=== PATIENT | female | born 1955 | race Caucasian/White ===

== ENCOUNTER 2016-08-15 12:12 | Observation (INO) | payer OTHER ==
[2016-08-15] MEDS ORDERED: ASPIRIN 81 MG CHEWABLE TAB PO ONE ×2 (12:24→12:45)
--- NOTE | 2016-08-15 12:25 | CPEKG ---
Heart Rate: 73 RR Interval: 822 P-R Interval: 164 QRSD Interval: 88 QT Interval: 388 QTC Interval: 428 P [place]: 37 QRS [place]: 0 T Wave [place]: 59 EKG Severity - BORDERLINE ECG - EKG Impression: SINUS RHYTHM EKG Impression: BORDERLINE T ABNORMALITIES, ANT-LAT LEADS Electronically Signed By: Thanh Escobedo 15-Aug-2016 14:30:41
[2016-08-15] MEDS ORDERED: ASPIRIN 81 MG CHEWABLE TAB ONE (12:31)
[2016-08-15 12:53] LABS: % IMMATURE GRANULYOCYTES 0.7 % (0.0-1.1); ABSOLUTE IMMATURE GRANULOCYTES 0.06 10^3/uL (0.00-0.10); ADD DIFF? NO; ADD MORPH? NO; ADD SCAN? NO; ATYPICAL LYMPHOCYTE FLAG 0 (0-99); FRAGMENT RBC FLAG 0 (0-99); HEMATOCRIT 45.2 % (38.0-47.0); LEFT SHIFT FLG 0 (0-99); LIPEMIA HEMOLYSIS FLAG 80 (0-99); MEAN CELL HEMOGLOBIN CONCENTR. 33.2 g/dL (32.4-36.7); MEAN CELL VOLUME 87.4 fL (81.5-99.8); MEAN PLATELET VOLUME 8.9 fL (8.7-11.7); PLATELET CLUMPS FLAG 10 (0-99); PLATELET COUNT 252 10^3/uL (150-400); RED BLOOD CELL COUNT 5.17 10^6/uL (4.18-5.33); RED CELL DISTRIBUTION WIDTH 13.4 % (11.5-15.2)
[2016-08-15 13:10] LABS: ANION GAP 14 mEq/L (8-16); CALCIUM 9.5 mg/dL (8.5-10.4); CARBON DIOXIDE 24 mEq/l (22-31); CHLORIDE 105 mEq/L (97-110); CREATININE 0.7 mg/dL (0.6-1.0); GLOMERULAR FILTRATION RATE > 60; GLUCOSE 106 mg/dL (70-100); INR 0.94 (0.83-1.16); POTASSIUM 4.2 mEq/L (3.5-5.2); PROTIME(PATIENT) 12.3 SEC (12.0-15.0); SODIUM 143 mEq/L (134-144)
[2016-08-15] MEDS ORDERED: FAMOTIDINE 20 MG in NS 100 ML IV ONE (13:11)
--- NOTE | 2016-08-15 13:11 | UCPHY ---
H & P Time Seen by Provider: 08/15/16 12:24 Patient Type: Established HPI/ROS: HPI Abdominal discomfort, chest discomfort. 61-year-old female by private vehicle with her . This patient reports that she was [facility] this last Friday. She was exercising when she started to feel ill. She describes this as feeling weak in achy and then developing nausea and abdominal discomfort. She reports that Friday night her nausea worsened and she started vomiting. She reports several episodes of nonbilious nonbloody vomiting. Her abdominal discomfort has since gone away but she states that she feels pain in her sternum and feels mildly short of breath. She reports that this has continued. She spoke with her primary care physician today and was told to come to the urgent care for evaluation. No history of trauma. ROS: Constitutional: No fever, no chills. No weakness. Eyes: No discharge. No changes in vision. ENT: No sore throat. No nasal congestion or rhinorrhea. Respiratory: No cough. No shortness of breath. Cardiac: As above, no palpitations. Gastrointestinal: As above, no diarrhea. Genitourinary: No hematuria. No dysuria or increased frequency with urination. Musculoskeletal: No back pain. No neck pain. No myalgias or arthralgias. Skin: No rashes. Neurological: No headache. No focal weakness or altered sensation. Past medical history: Depression, GERD, reactive airway disease. Social history: Smoker. She is trying to quit. Here with her . Physical Exam: General Appearance: Alert, no distress. Obese habitus. This patient is responding to questions appropriately and in full sentences. This patient appears well-hydrated and well-nourished. Eyes: Pupils equal and round no pallor or injection. No lid edema, erythema or injection. Respiratory: There are no retractions, lungs are clear to auscultation with good air movement bilaterally. No tachypnea. Cardiovascular: Regular rate and rhythm. No murmur. Reproducible pain on palpation of the mid to upper sternum. No bony step-off or deformity noted. No soft tissue swelling, ecchymosis, no erythema, no warmth to this area. Gastrointestinal: Abdomen is soft and nontender, no masses, bowel sounds normal. No focal tenderness at McBurney's point. No Wetzel sign. Neurological: Motor sensory function is grossly intact. Cranial nerves are normal. Gait is normal. Skin: Warm and dry, no rashes. Musculoskeletal: Neck is supple and nontender. Extremities are symmetrical. All joints range without pain or impingement. Psychiatric: No agitation. No depression. Database: EKG: EKG time is 12:24 p.m. EKG shows a narrow complex normal sinus rhythm with a ventricular rate of 73. Borderline T-wave abnormalities in the anterior lateral leads. The AL, QRS, QT intervals are within normal limits. There are no ST-T wave changes indicative of ischemic or injury pattern. No evidence of right heart strain. Interpreted by me. Imaging: Chest x-ray AP portable; the cardiac mediastinal silhouette is unremarkable. No evidence of infiltrate or pneumothorax. No acute cardiopulmonary disease process noted. Interpreted by me. Procedures: Emergency department course: IV placed. She was placed on a shelter monitor. Vital signs reviewed. She was given 324 mg of chewed aspirin. EKG and chest x-ray obtained. Appropriate blood work sent. She was given IV Pepcid as well. 1:30 p.m., patient re-evaluated. Awaiting results of blood work. Feels better. No pain at rest. 1:40 p.m., D-dimer elevated. Discussed need for CT angio of chest. She consents. 2:35 p.m., the patient is just now going for her CT angiogram of her chest. 3:00 p.m., patient has a severe allergy to contrast dye and shellfish. She did not think premedication was possible. Spoke to radiologist Dr. Aguirre. Will send patient to [facility] emergency department for nuclear medicine scan. Spoke to Dr. Familia Valencia, Emergency Department attending physician. He is expecting this patient and will take over her care when she arrives in the emergency department. 3:25 p.m., spoke with hospitalist, Dr. Pollard. Dr. Pollard accepts this patient for admission to the [facility] observation status. Dr. Valencia will inform Dr. Pollard of results of V/Q scan. Patient transferred by private vehicle to [facility] emergency department in stable condition with her . Differential Diagnosis: The differential diagnosis on this patient includes but is not limited to food borne illness, viral gastritis, esophageal spasm, GERD, acute coronary syndrome. Pulmonary embolism, aortic dissection unlikely. This represents a partial list of diagnoses considered. These considerations are based on history , physical exam, past history, reassessment and diagnostic testing. Smoking Status: Current every day smoker Constitutional: Initial Vital Signs Temperature (C) 36.9 C 08/15/16 12:15 Heart Rate 75 08/15/16 12:15 Respiratory Rate 16 08/15/16 12:15 Blood Pressure 140/83 H 08/15/16 12:15 O2 Sat (%) 92 08/15/16 12:15 O2 Delivery Mode Nasal Cannula O2 (L/minute) 2 Allergies/Adverse Reactions: cephalexin monohydrate [From Keflex] Allergy (Severe, Verified 12/16/15 20:05) swelling, difficulty breathing acetaminophen [From Percocet] Allergy (Intermediate, Verified 08/15/16 16:00) Vomiting oxycodone HCl [From Percocet] Allergy (Intermediate, Verified 08/15/16 16:00) Vomiting tetracycline [Tetracycline] Allergy (Intermediate, Verified 12/16/15 20:05) boils vancomycin Allergy (Intermediate, Verified 12/16/15 20:06) Red Man Syndrome erythromycin base [Erythromycin Base] Allergy (Mild, Verified 08/15/16 16:00) Vomiting lidocaine [Lidocaine] Allergy (Mild, Verified 12/16/15 20:05) swelling, redness lidocaine HCl [From Xylocaine] Allergy (Mild, Verified 12/16/15 20:05) swelling,redness iodine [Iodine] Allergy (Unknown, Verified 12/16/15 20:05) told not to take Penicillins Allergy (Unknown, Verified 12/16/15 20:05) reacted as Sulfa (Sulfonamide Antibiotics) Allergy (Unknown, Verified 12/16/15 20:06) Unknown nestacaine Allergy (Mild, Uncoded 06/29/09 18:32) swelling,redness thimerisol Allergy (Mild, Uncoded 06/29/09 18:37) redness,heat,swelling at injection site mercury Allergy (Unknown, Uncoded 06/29/09 18:38) told not to take Home Medications: Medication Instructions Recorded Cetirizine [ZyrTEC 10 mg (*)] 10 mg PO DAILY 02/16/11 Venlafaxine Xr [Effexor Xr 75MG 150 mg PO DAILY 02/16/11 (*)] Albuterol [Proventil Inhaler HFA 1 - 2 puffs IH DAILY PRN 12/16/15 (*)] Levothyroxine [Synthroid 75 mcg 75 mcg PO DAILY06 12/16/15 (*)] Aspirin [Aspirin 81mg (*)] 81 mg PO DAILY 08/15/16 Cholecalciferol Vit D3 [Vitamin D3 4,000 units PO DAILY 08/15/16 2000 units tab (OTC)] Fluticasone Hfa 220 Mcg [Flovent 1 puffs PO BID PRN 08/15/16 220 MCG Hfa MDI (*)] Glucosamine/Chondroitin 1 each PO DAILY 08/15/16 [Glucosamine/Chondroitin (*)] Herbals/Supplements -Info Only 1 ea PO DAILY 08/15/16 Multivitamins [Multivitamin (*)] 1 each PO DAILY 08/15/16 Vitamin B Complex [B Complex] 1 each PO DAILY 08/15/16 Medical Decision Making - Data Points Laboratory Results: Laboratory Results 08/15/16 12:42 08/15/16 12:42 08/15/16 12:42 Total Bilirubin 0.6 mg/dL mg/dL (0.1-1.4) Conjugated Bilirubin 0.3 mg/dL mg/dL (0.0-0.5) Unconjugated Bilirubin 0.3 mg/dL mg/dL (0.0-1.1) AST 21 IU/L IU/L (14-46) ALT 32 IU/L IU/L (9-52) Alkaline Phosphatase 111 IU/L IU/L (38-126) Total Protein 6.5 g/dL g/dL (6.3-8.2) Albumin 3.6 g/dL g/dL (3.5-5.0) TSH 0.084 uIU/mL L uIU/mL (0.465-4.680) Medications Given: Discontinued Medications Aspirin (Aspirin) 324 mg PO EDNOW ONE Stop: 08/15/16 12:25 Last Admin: 08/15/16 12:49 Dose: Not Given Aspirin (Aspirin) 243 mg PO EDNOW ONE Stop: 08/15/16 12:46 Last Admin: 08/15/16 12:40 Dose: 243 mg Famotidine 20 mg/ Sodium (Chloride) 102 mls @ 408 mls/hr IV EDNOW ONE Stop: 08/15/16 13:25 Last Admin: 08/15/16 13:34 Dose: Not Given Famotidine/Sodium Chloride (Pepcid 20 Mg (Premix)) 50 mls @ 200 mls/hr IV ONCE ONE Stop: 08/15/16 13:47 Last Admin: 08/15/16 13:35 Dose: 50 mls Departure - Departure Disposition: [facility] Inpatient Acute Clinical Impression: Chest discomfort Condition: Good - PQRS PQRS Measurement: 134: Depression screening and followup, PRIME MD-PHQ2 (12 years and older) Over the last 2 weeks, how often have you been bothered by any of the following problems? 1. Feeling down, depressed, or hopeless? 2. Little interest or pleasure in doing things? Answered no to both questions. 130: Documentation of medications. Reviewed all patient medications, doses, route and frequency. 226: Do you smoke? No. 47: 65 and older: Advanced care planning. Patient designates surrogate decision maker as spouse. 51: 18 years old and older with diagnosis of COPD, spirometry performance. NA 52: 18 years old and older with COPD and symptoms of COPD or FEV1<60% predicted prescribed a B Agonist. NA
[2016-08-15 13:23] LABS: TROPONIN I < 0.012 ng/mL (0-0.034)
[2016-08-15] MEDS ORDERED: FAMOTIDINE 20 MG/NACL/50 ML BAG IV ONE (13:26)
[2016-08-15] MEDS ORDERED: FAMOTIDINE 20 MG/NACL 50 ML IV ONE (13:33)
[2016-08-15] MEDS ORDERED: IOPAMIDOL (ISOVUE-370) 150 ML BTL IV ONE (13:49)
[2016-08-15] MEDS ORDERED: ONDANSETRON DISINTEGRATING 4 MG TAB PO PRN (17:23)
[2016-08-15] MEDS ORDERED: ONDANSETRON 4 MG/2 ML VIAL IVP PRN (17:23)
--- NOTE | 2016-08-15 17:34 | PDEACUHP ---
History and Physical - Chief Complaint chest pain - History of Present Illness 61 yo female with h/o anxiety, obesity, and GERD presented to urgent care reporting chest pain. Her symptoms started 2 days ago while exercising on the recumbant bicycle. She was working out at moderate to maximum intensity and felt SOB, unable to carry on a conversation. She then developed crampy lower abdominal pain. Upon arrival home, she had persistent abdominal discomfort and felt bloated. The discomfort then cale into her chest. She then vomited multiple times, non-bilious, no hematemesis or coffee ground emesis. She had no fevers and no diarrhea. Her symptoms mostly resolved, but when she mentioned them to her sister, an RN, she was advised to seek medical attention due to concern for possible ACS. At this time, she denies CP. She feels her sternum is tender to the touch and it is painful to take a deep breath. In urgent care, she received a full dose ASA. A d dimer was elevated and she was sent to the ED for a V/Q scan. This was negative and she is admitted for further evaluation of her chest pain. History Information - Allergies/Home Medication List Allergies/Adverse Reactions: cephalexin monohydrate [From Keflex] Allergy (Severe, Verified 12/16/15 20:05) swelling, difficulty breathing acetaminophen [From Percocet] Allergy (Intermediate, Verified 08/15/16 16:00) Vomiting oxycodone HCl [From Percocet] Allergy (Intermediate, Verified 08/15/16 16:00) Vomiting tetracycline [Tetracycline] Allergy (Intermediate, Verified 12/16/15 20:05) boils vancomycin Allergy (Intermediate, Verified 12/16/15 20:06) Red Man Syndrome erythromycin base [Erythromycin Base] Allergy (Mild, Verified 08/15/16 16:00) Vomiting lidocaine [Lidocaine] Allergy (Mild, Verified 12/16/15 20:05) swelling, redness lidocaine HCl [From Xylocaine] Allergy (Mild, Verified 12/16/15 20:05) swelling,redness iodine [Iodine] Allergy (Unknown, Verified 12/16/15 20:05) told not to take Penicillins Allergy (Unknown, Verified 12/16/15 20:05) reacted as Sulfa (Sulfonamide Antibiotics) Allergy (Unknown, Verified 12/16/15 20:06) Unknown nestacaine Allergy (Mild, Uncoded 06/29/09 18:32) swelling,redness thimerisol Allergy (Mild, Uncoded 06/29/09 18:37) redness,heat,swelling at injection site mercury Allergy (Unknown, Uncoded 06/29/09 18:38) told not to take Home Medications: Cetirizine [ZyrTEC 10 mg (*)] 10 mg PO DAILY 02/16/11 [Last Taken 08/15/16] Venlafaxine Xr [Effexor Xr 75MG (*)] 150 mg PO DAILY 02/16/11 [Last Taken ] Albuterol [Proventil Inhaler HFA (*)] 1 - 2 puffs IH DAILY PRN 12/16/15 [Last Taken Unknown] Levothyroxine [Synthroid 75 mcg (*)] 75 mcg PO DAILY06 12/16/15 [Last Taken 08/02] Aspirin [Aspirin 81mg (*)] 81 mg PO DAILY 08/15/16 [Last Taken 08/15/16] Cholecalciferol Vit D3 [Vitamin D3 2000 units tab (OTC)] 4,000 units PO DAILY [Last Taken Unknown] Fluticasone Hfa 220 Mcg [Flovent 220 MCG Hfa MDI (*)] 1 puffs PO BID PRN [Last Taken Unknown] Glucosamine/Chondroitin [Glucosamine/Chondroitin (*)] 1 each PO DAILY 08/15/16 [ Last Taken Unknown] Herbals/Supplements -Info Only 1 ea PO DAILY 08/15/16 [Last Taken Unknown] Multivitamins [Multivitamin (*)] 1 each PO DAILY 08/15/16 [Last Taken Unknown] Vitamin B Complex [B Complex] 1 each PO DAILY 08/15/16 [Last Taken Unknown] I have personally reviewed and updated: family history, medical history, social history, surgical history - Past Medical History GERD Additional medical history: depression, RAD, NABILA, tobacco abuse, anxiety - Family History Additional family history: sister has a congenital heart defect - Social History Smoking Status: Current every day smoker Additional social history: Lives independently with her . She recently retired. Review of Systems ROS: 10pt was reviewed & negative except for what was stated in HPI & below Physical Exam Temp Pulse Resp BP Pulse Ox 36.9 C 67 18 128/82 H 95 08/15/16 12:15 08/15/16 15:16 08/15/16 15:16 08/15/16 15:16 08/15/16 15:16 Constitutional: no apparent distress Eyes: PERRL Ears, Nose, Mouth, Throat: moist mucous membranes Cardiovascular: regular rate and rhythym, no murmur, rub, or gallop Respiratory: no respiratory distress, clear to auscultation, reduced air movement Gastrointestinal: normoactive bowel sounds, soft, non-tender abdomen Skin: warm Musculoskeletal: full muscle strength Neurologic: AAOx3 Psychiatric: interacting appropriately Lab Data & Imaging Review 08/15/16 12:42 08/15/16 12:42 WBC 8.58 10^3/uL (3.80-9.50) 08/15/16 12:42 RBC 5.17 10^6/uL (4.18-5.33) 08/15/16 12:42 Hgb 15.0 g/dL (12.6-16.3) 08/15/16 12:42 Hct 45.2 % (38.0-47.0) 08/15/16 12:42 MCV 87.4 fL (81.5-99.8) 08/15/16 12:42 MCH 29.0 pg (27.9-34.1) 08/15/16 12:42 MCHC 33.2 g/dL (32.4-36.7) 08/15/16 12:42 RDW 13.4 % (11.5-15.2) 08/15/16 12:42 Plt Count 252 10^3/uL (150-400) 08/15/16 12:42 MPV 8.9 fL (8.7-11.7) 08/15/16 12:42 Neut % (Auto) 68.5 % (39.3-74.2) 08/15/16 12:42 Lymph % (Auto) 19.1 % (15.0-45.0) 08/15/16 12:42 [place] % (Auto) 7.6 % (4.5-13.0) 08/15/16 12:42 Eos % (Auto) 3.4 % (0.6-7.6) 08/15/16 12:42 Baso % (Auto) 0.7 % (0.3-1.7) 08/15/16 12:42 Nucleat RBC Rel Count 0.0 % (0.0-0.2) 08/15/16 12:42 Absolute Neuts (auto) 5.88 10^3/uL (1.70-6.50) 08/15/16 12:42 Absolute Lymphs (auto) 1.64 10^3/uL (1.00-3.00) 08/15/16 12:42 Absolute Monos (auto) 0.65 10^3/uL (0.30-0.80) 08/15/16 12:42 Absolute Eos (auto) 0.29 10^3/uL (0.03-0.40) 08/15/16 12:42 Absolute Basos (auto) 0.06 10^3/uL (0.02-0.10) 08/15/16 12:42 Absolute Nucleated RBC 0.00 10^3/uL (0-0.01) 08/15/16 12:42 Immature Gran % 0.7 % (0.0-1.1) 08/15/16 12:42 Immature Gran # 0.06 10^3/uL (0.00-0.10) 08/15/16 12:42 PT 12.3 SEC (12.0-15.0) 08/15/16 12:42 INR 0.94 (0.83-1.16) 08/15/16 12:42 APTT 33.0 SEC (23.0-38.0) 08/15/16 12:42 D-Dimer 0.69 ug/mLFEU (0.00-0.50) H 08/15/16 12:42 Sodium 143 mEq/L (134-144) 08/15/16 12:42 Potassium 4.2 mEq/L (3.5-5.2) 08/15/16 12:42 Chloride 105 mEq/L (97-110) 08/15/16 12:42 Carbon Dioxide 24 mEq/l (22-31) 08/15/16 12:42 Anion Gap 14 mEq/L (8-16) 08/15/16 12:42 BUN 12 mg/dL (7-23) 08/15/16 12:42 Creatinine 0.7 mg/dL (0.6-1.0) 08/15/16 12:42 Estimated GFR > 60 08/15/16 12:42 Glucose 106 mg/dL (70-100) H 08/15/16 12:42 Calcium 9.5 mg/dL (8.5-10.4) 08/15/16 12:42 Troponin I < 0.012 ng/mL (0-0.034) 08/15/16 12:42 NT-Pro-B Natriuret Pep 48 pg/mL (0-125) 08/15/16 12:42 Visualized and Interpreted Chest x-ray results: Yes Visualized and Interpreted EKG results: Yes EKG additional interpertation: T wave flattening lorin/lateral leads Assessment & Plan Assessment: Chest discomfort (Acute) - In setting of crampy abdominal pain and nausea/ vomiting. Cardiac risk factors include tobacco abuse. Initial troponin negative. EKG non-ischemic, though some T wave flattening in anterior / lateral leads. She is chest pain free at this time and has some chest wall tenderness on exam. V/Q done, low suspicion for PE. Also considered viral etiology vs GERD vs atypical biliary symptoms. -Full dose ASA given in urgent care -repeat EKG to eval for dynamic changes -trend troponin -check lipid status -check LFT's, consider RUQ us if elevated as these symptoms could be biliary in origin, though no RUQ tenderness -unable to give GI cocktail due to lidocaine allergy, will add H2 champ -exercise treadmill stress test in am if above w/u negative Tobacco abuse - plans to quit cold turkey NABILA - home CPAP. Depression / Anxiety - Cont Effexor. -prn ativan while here, she's quite anxious Hypothyroidism - hold synthroid for now -check TSH to ensure no exogenous hyperthyroidism contributing to above symptoms RAD - CXR neg. Cont home inhalers. Full code Dispo - [facility] / obs
[2016-08-15] MEDS: LORazepam 0.5 MG TAB PO PRN (19:40)
[2016-08-15] MEDS: FAMOTIDINE 20 MG TAB PO SCH (19:41)
[2016-08-15 20:38] LABS: ALBUMIN 3.6 g/dL (3.5-5.0); BILIRUBIN,TOTAL 0.6 mg/dL (0.1-1.4); BILIRUBIN-CONJUGATED 0.3 mg/dL (0.0-0.5); BILIRUBIN-UNCONJUGATED 0.3 mg/dL (0.0-1.1); TOTAL PROTEIN 6.5 g/dL (6.3-8.2)
[2016-08-15] MEDS ORDERED: RANITIDINE HCL 150 MG/10 ML UDCUP PO SCH (21:00)
[2016-08-15] MEDS ORDERED: FLUTICASONE HFA 220 MCG MDI IH PRN (23:20)
[2016-08-15] MEDS ORDERED: ALBUTEROL 60 PUFFS/8 GM MDI IH PRN (23:20)
[2016-08-16 04:40] VITALS: TEMP 97.8
[2016-08-16 05:46] LABS: CHOLESTEROL 144 mg/dL (140-220); CHOLESTEROL/HDL RATIO 3.89 RATIO (1.00-4.44); HIGH DENSITY LIPOPROTEIN 37 mg/dL (40-85); LDL/HDL RATIO 2.24 RATIO (1.00-3.22); LOW DENSITY LIPOPROTEIN 83 mg/dL (80-100); NON-HIGH DENSITY LIPOPROTEIN 107 mg/dL (90-129); TRIGLYCERIDE 122 mg/dL (35-135); VERY LOW DENSITY LIPOPROTEINS 24 mg/dL (8-25)
[2016-08-16 05:52] LABS: TROPONIN I < 0.012 ng/mL (0-0.034)
[2016-08-16 08:25] VITALS: BP 125/77; PULSE 61; RESP 20; O2SAT 91
[2016-08-16] MEDS ORDERED: VENLAFAXINE XR 75 MG CAP PO SCH (09:00)
[2016-08-16] MEDS ORDERED: CETIRIZINE 10 MG TAB PO SCH (09:00)
[2016-08-16] MEDS ORDERED: ASPIRIN 81 MG CHEWABLE TAB PO SCH (09:00)
--- NOTE | 2016-08-16 09:04 | CPEKG ---
Heart Rate: 61 RR Interval: 984 P-R Interval: 184 QRSD Interval: 86 QT Interval: 432 QTC Interval: 435 P [place]: 25 QRS [place]: 13 T Wave [place]: 45 EKG Severity - BORDERLINE ECG - EKG Impression: SINUS RHYTHM EKG Impression: BORDERLINE T ABNORMALITIES, ANT-LAT LEADS Electronically Signed By: Juan Manuel Berry 16-Aug-2016 14:41:15
[2016-08-16] MEDS: FAMOTIDINE 20 MG TAB PO SCH (10:43)
[2016-08-16] MEDS: LORazepam 0.5 MG TAB PO PRN (11:35)
--- NOTE | 2016-08-16 17:19 | GDS ---
DISCHARGE DIAGNOSES: 1. Chest discomfort. 2. Nausea. 3. Tobacco abuse. 4. History of depression with anxiety. 5. Hypothyroidism. STUDIES AND PROCEDURES DONE: V/Q scan. PHYSICAL EXAM: GENERAL: The patient is alert. VITAL SIGNS: Afebrile at 36.6, pulse is 61, respir atory rate 20, blood pressure is 125/77, she is saturating 91% on room air. I have seen and evaluat ed the patient on the day of discharge. HOSPITAL COURSE: Ms. Serrano is a 61-year-old female, who presented to the urgent care with complaints of chest discomfort with persistent abdominal discomfort and bloating. She was evaluated and diagn osed with: 1. Chest discomfort. After interviewing the patient, she denies that she ever had any chest pain. Her EKGs are stable. V/Q scan is low suspicion for pulmonary emboli. The patient's laboratory edelmira luations have remained stable. Cardiac enzymes are within normal limits. A stress test was offered to the patient during this hospitalization; however, she has denied. She wishes to have this sched uled in the outpatient setting. Liver enzymes are within normal limits. She is started on aspirin therapy and will follow up outside the hospital with a stress test and her primary care physician. 2. Chronic tobacco abuse. The patient has received nicotine cessation education, and states that s he will quit tobacco use. 3. History of hypothyroidism. During this hospitalization, the patient's TSH was 0.083. I have in structed her to follow up with her commodity merchant in the outpatient setting and to hold off on her Synthroid until otherwise advised by her commodity merchant. She is currently calling to make an appoi ntment. 4. Depression with anxiety. Continue the patient's previously prescribed home medications. DISPOSITION: Ms. Serrano will be discharged home independently. I have instructed her to return to [facility] emergency room if her discomfort should return. She is understanding of this and will follow in t he outpatient setting with a stress test as well as an endocrinology appointment. There are no othe r pending studies. DISCHARGE MEDICATIONS: Please refer to EMR form. I have not provided the patient any prescriptions at the time of disposition. /[id number]/MODL
== END 2016-08-16 12:27 | disposition home or self-care (01) ==
LOC: CED 12:12 → F3N 18:41
PROVIDERS: ADMIT Hospitalist; ATTEND Internal Medicine
DX: R07.89 Other chest pain (principal); R11.0 Nausea; K21.9 Gastro-esophageal reflux disease without esophagitis; F17.210 Nicotine dependence, cigarettes, uncomplicated; E66.09 Other obesity due to excess calories; J45.909 Unspecified asthma, uncomplicated; F32.9 Major depressive disorder, single episode, unspecified; F41.9 Anxiety disorder, unspecified; E03.9 Hypothyroidism, unspecified
CPT/HCPCS: 71010; 78582; 93005; 96374; 99213; A9540; A9558; G0378; 80048-PO; 83880-PO; 84484-PO; 85025-PO; 85378-PO; 85610-PO; 85730-PO; 93010-PO; 99215-PO; G0463-PO; Q9967

== ENCOUNTER 2017-05-05 11:37 | Emergency (ER) | payer OTHER ==
[2017-05-05 11:51] VITALS: RESP 16; TEMP 97.7
[2017-05-05] MEDS ORDERED: ONDANSETRON 4 MG/2 ML VIAL IVP ONE (11:58)
[2017-05-05] MEDS ORDERED: NS 1,000 ML IV ONE (12:10)
[2017-05-05 12:21] LABS: ADD DIFF? NO; ADD MORPH? NO; ADD SCAN? NO; ATYPICAL LYMPHOCYTE FLAG 0 (0-99); FRAGMENT RBC FLAG 0 (0-99); LEFT SHIFT FLG 0 (0-99); LIPEMIA HEMOLYSIS FLAG 90 (0-99); MEAN PLATELET VOLUME 8.5 fL (8.7-11.7); PLATELET CLUMPS FLAG 10 (0-99); RED BLOOD CELL COUNT 5.61 10^6/uL (4.18-5.33)
[2017-05-05 12:23] LABS: % IMMATURE GRANULYOCYTES 0.6 % (0.0-1.1); ABSOLUTE IMMATURE GRANULOCYTES 0.06 10^3/uL (0.00-0.10); HEMATOCRIT 49.4 % (38.0-47.0); HEMOGLOBIN 17.2 g/dL (12.6-16.3); MEAN CELL HEMOGLOBIN 30.7 pg (27.9-34.1); MEAN CELL HEMOGLOBIN CONCENTR. 34.8 g/dL (32.4-36.7); MEAN CELL VOLUME 88.1 fL (81.5-99.8); PLATELET COUNT 254 10^3/uL (150-400)
[2017-05-05 12:36] LABS: INR 0.92 (0.83-1.16); PROTIME(PATIENT) 12.1 SEC (12.0-15.0)
[2017-05-05 12:37] LABS: APTT 34.4 SEC (23.0-38.0)
[2017-05-05 12:45] LABS: ALANINE AMINOTRANSFERASE 36 IU/L (9-52); ALBUMIN 4.2 g/dL (3.5-5.0); ALKALINE PHOSPHATASE 135 IU/L (38-126); ANION GAP 15 mEq/L (8-16); ASPARTATE AMINOTRANSFERASE 21 IU/L (14-46); BILIRUBIN,TOTAL 0.4 mg/dL (0.1-1.4); CALCIUM 9.9 mg/dL (8.5-10.4); CARBON DIOXIDE 25 mEq/l (22-31); CHLORIDE 102 mEq/L (97-110); CREATININE 0.7 mg/dL (0.6-1.0); GLOMERULAR FILTRATION RATE > 60; GLUCOSE 94 mg/dL (70-100); POTASSIUM 4.8 mEq/L (3.5-5.2); SODIUM 142 mEq/L (134-144); TOTAL PROTEIN 7.3 g/dL (6.3-8.2)
--- NOTE | 2017-05-05 13:08 | EDPHY ---
H & P Stated Complaint: 0230- abd cramping with diarrhrea x2hrs, bright red blood at 1 point,vomit Time Seen by Provider: 05/05/17 12:04 HPI/ROS: This patient presents with bloody diarrhea. She explains that at 2:30 a.m. the morning she developed some diffuse cramping associated with diarrhea with small amounts of bright red blood. She reports mostly mucus and blood without much stool. She has associated nausea but no vomiting. Without intervention her cramping is diminished to 6/10 the time of arrival here. She did have some dry heaves and vomited once with yellow appearing emesis. No hematemesis or coffee- ground emesis. In describing the amount of blood in the toilet she describes "about 3 tbsp ". She has driven here by her for further evaluation of her symptoms. She has not had bloody stools in the past. She does have a history of colon polyps and family history of colon cancer and had a colonoscopy with of the [facility] 18 months ago with 2 polyps at that time. ROS: Constitutional: No fevers. No significant fatigue. HEENT: No recent URI symptoms except minimal coryza. Pulmonary: No shortness of breath. Cardiovascular: No heart palpitations chest pain or lightheadedness. GI: As per HPI. : No complaints Endocrine: No complaints Heme: No easy bruising, epistaxis or other Complete review of symptoms is otherwise negative Source: Patient Exam Limitations: No limitations - Personal History Tetanus Vaccine Date: 2003 - Medical/Surgical History Hx Asthma: No Hx Chronic Respiratory Disease: No Hx Diabetes: No Hx Cardiac Disease: No Hx Renal Disease: No Hx Cirrhosis: No Hx Alcoholism: Yes Hx HIV/AIDS: No Hx Splenectomy or Spleen Trauma: No Other PMH: ortho surgeries, two c sections, carpal tunnel to R hand, L ankle repair, R knee, bilat hand, thyroidectomy, - Family History Significant Family History: Other (Family history of colon cancer) - Social History Smoking Status: Heavy smoker Alcohol Use: None Drug Use: None - Physical Exam Exam: Vital signs normal exception of mild hypertension at 168/93 General Appearance: Alert, no distress. Eyes: Pupils equal and round no pallor or injection. ENT, Mouth: Mucous membranes moist. Respiratory: There are no retractions, lungs are clear to auscultation. Cardiovascular: Regular rate and rhythm. No murmur gallop rub Gastrointestinal: Abdomen is soft and nontender, no masses, bowel sounds normal. Rectal exam: No significant external hemorrhoids. She has small amount of bright red blood. Neurological: GCS 15 Skin: Warm and dry, no rashes. Musculoskeletal: Neck is supple nontender. Extremities are symmetrical, full range of motion. Psychiatric: Mood and affect normal DIFFERENTIAL DIAGNOSIS: After history and physical exam differential diagnosis was considered for mild lower GI bleed-polyp, tumor, infectious diarrhea/colitis -viral versus bacterial, internal hemorrhoid Constitutional: Initial Vital Signs Temperature (C) 36.5 C 05/05/17 11:45 Heart Rate 80 05/05/17 11:45 Respiratory Rate 16 05/05/17 11:45 Blood Pressure 168/93 H 05/05/17 11:45 O2 Sat (%) 93 05/05/17 11:45 O2 Delivery Mode Room Air Allergies/Adverse Reactions: cephalexin monohydrate [From Keflex] Allergy (Severe, Verified 05/05/17 11:43) swelling, difficulty breathing acetaminophen [From Percocet] Allergy (Intermediate, Verified 05/05/17 11:43) Vomiting oxycodone HCl [From Percocet] Allergy (Intermediate, Verified 05/05/17 11:43) Vomiting tetracycline [Tetracycline] Allergy (Intermediate, Verified 05/05/17 11:43) boils vancomycin Allergy (Intermediate, Verified 05/05/17 11:43) Red Man Syndrome erythromycin base [Erythromycin Base] Allergy (Mild, Verified 05/05/17 11:43) Vomiting lidocaine [Lidocaine] Allergy (Mild, Verified 05/05/17 11:43) swelling, redness lidocaine HCl [From Xylocaine] Allergy (Mild, Verified 05/05/17 11:43) swelling,redness iodine [Iodine] Allergy (Unknown, Verified 05/05/17 11:43) told not to take Penicillins Allergy (Unknown, Verified 05/05/17 11:43) reacted as infant Sulfa (Sulfonamide Antibiotics) Allergy (Unknown, Verified 05/05/17 11:43) Unknown nestacaine Allergy (Mild, Uncoded 05/05/17 11:43) swelling,redness thimerisol Allergy (Mild, Uncoded 05/05/17 11:43) redness,heat,swelling at injection site mercury Allergy (Unknown, Uncoded 05/05/17 11:43) told not to take Home Medications: Medication Instructions Recorded Cetirizine [ZyrTEC 10 mg (*)] 10 mg PO DAILY 02/16/11 Venlafaxine Xr [Effexor Xr 75MG 150 mg PO DAILY 02/16/11 (*)] Albuterol [Proventil Inhaler HFA 1 - 2 puffs IH DAILY PRN 12/16/15 (*)] Levothyroxine [Synthroid 75 mcg 75 mcg PO DAILY06 12/16/15 (*)] Aspirin [Aspirin 81mg (*)] 81 mg PO DAILY 08/15/16 Cholecalciferol Vit D3 [Vitamin D3 4,000 units PO DAILY 08/15/16 2000 units tab (OTC)] Fluticasone Hfa 220 Mcg [Flovent 1 puffs PO BID PRN 08/15/16 220 MCG Hfa MDI (*)] Glucosamine/Chondroitin 1 each PO DAILY 08/15/16 [Glucosamine/Chondroitin (*)] Herbals/Supplements -Info Only 1 ea PO DAILY 08/15/16 Multivitamins [Multivitamin (*)] 1 each PO DAILY 08/15/16 Vitamin B Complex [B Complex] 1 each PO DAILY 08/15/16 Ondansetron Odt [Zofran Odt] 4 - 8 mg PO Q4PRN PRN #4 tab 05/05/17 Medical Decision Making ED Course/Re-evaluation: Studies: Minimal leukocytosis here with evidence hemoconcentration with slightly increased hematocrit Metabolic panel is normal with exception of minimally elevated alk-phos. Guaiac test is heme positive Stool testing by PCR is negative for organisms. Course: Normal saline bolus. Patient remained stable. Her nausea treated with Zofran with resolution in her belly cramping resolved without intervention. Discussion: Patient with minimal lower GI bleeding hemodynamically stable without anemia or evidence of coagulopathy. I do not think she has significant infectious colitis given negative organisms on PCR study. She may have bleeding from a pop given known history of polyps. Counseled regarding this explained that most lower GI bleeding of this nature resolved without further intervention. She does understand the need to return emergency department for any significant worsening of her symptoms will have close follow up with Dr. Hale[facility] of the [facility] - Data Points Laboratory Results: Laboratory Results 05/05/17 12:15 05/05/17 12:15 Microbiology Results: MICROBIOLOGY 05/05/17 12:56 Stool Gastrointestinal Tract Panel (PCR) - Final No Organism Detected Medications Given: Discontinued Medications Sodium Chloride (Ns) 1,000 mls @ 0 mls/hr IV EDNOW ONE; Wide Open PRN Reason: Protocol Stop: 05/05/17 12:11 Last Admin: 05/05/17 12:29 Dose: 1,000 mls Ondansetron HCl (Zofran) 4 mg IVP EDNOW ONE Stop: 05/05/17 11:59 Last Admin: 05/05/17 12:29 Dose: Not Given Departure - Departure Disposition: Home, Routine, Self-Care Clinical Impression: Bloody diarrhea Vomiting Qualifiers: Vomiting type: unspecified Vomiting Intractability: non-intractable Nausea presence: with nausea Qualified Code(s): R11.2 - Nausea with vomiting, unspecified Condition: Good Instructions: Ondansetron (By mouth), Acute Nausea and Vomiting (ED), Acute Diarrhea (ED) Additional Instructions: Diagnosis: Bloody diarrhea 2. Vomiting Plan: Zofran for nausea if needed Light diet to feel improved Follow up with the GI specialist listed below for further evaluation. Return emergency department if he have any significant worsening symptoms despite the treatment plan. Referrals: Philippe Hale MD [Medical Doctor] - As per Instructions Prescriptions: Ondansetron Odt [Zofran Odt] 4 - 8 mg PO Q4PRN PRN #4 tab PRN Reason: Vomiting
[2017-05-05 14:11] VITALS: BP 160/96; PULSE 75; O2SAT 94
== END 2017-05-05 13:50 | disposition home or self-care (01) ==
LOC: CED 11:37
DX: R19.7 Diarrhea, unspecified (principal); R11.2 Nausea with vomiting, unspecified; F17.200 Nicotine dependence, unspecified, uncomplicated; E86.9 Volume depletion, unspecified; Z79.82 Long term (current) use of aspirin
CPT/HCPCS: 80053-PO; 82270-PO; 85025-PO; 85610-PO; 85730-PO; J2405

== ENCOUNTER → 2017-06-24 | Outpatient (CLI) | payer OTHER | LOC: CIMAGING 11:25 | PROVIDERS: ATTEND Physician Assistant | DX: Z12.31 Encounter for screening mammogram for malignant neoplasm of breast (principal) ==

== ENCOUNTER → 2017-10-20 | Outpatient (CLI) | payer OTHER | LOC: CIMAGING 15:49 | PROVIDERS: ATTEND Physician Assistant | DX: H35.9 Unspecified retinal disorder (principal) | CPT/HCPCS: 93880-PO ==

== ENCOUNTER → 2018-02-23 | Outpatient (CLI) | payer OTHER | LOC: CIMAGING 12:34 | PROVIDERS: ATTEND Nurse Practitioner Family | DX: D25.1 Intramural leiomyoma of uterus (principal); D25.2 Subserosal leiomyoma of uterus | CPT/HCPCS: 76856-PO ==

== ENCOUNTER → 2018-06-25 | Outpatient (CLI) | payer OTHER | LOC: CIMAGING 10:37 | PROVIDERS: ATTEND Family Medicine | DX: Z12.31 Encounter for screening mammogram for malignant neoplasm of breast (principal) ==